=== PATIENT | female | born 1965 | race Caucasian/White ===

== ENCOUNTER 2018-08-10 16:28 | Emergency (ER) | payer MEDICAID ==
[~2018-08-10] VITALS: Ht 152.4 cm; Wt 82.1 kg
[2018-08-10 16:39] VITALS: Ht 152.4 cm; Wt 82.1 kg
[2018-08-10 17:45] VITALS: BP 121/69
== END 2018-08-10 18:49 | disposition home or self-care (01) ==
LOC: ED 16:28
DX: B34.9 Viral infection, unspecified (principal); N39.0 Urinary tract infection, site not specified; E78.00 Pure hypercholesterolemia, unspecified
CPT/HCPCS: J0696; J1100; J1885; Q0162

== ENCOUNTER 2018-08-22 16:06 | Emergency (ER) | payer MEDICAID ==
[~2018-08-22] VITALS: Ht 149.9 cm; Wt 84.8 kg
[2018-08-22 16:23] VITALS: Ht 149.9 cm; Wt 84.8 kg
[2018-08-22 21:34] VITALS: BP 121/68
== END 2018-08-22 21:36 | disposition home or self-care (01) ==
LOC: ED 16:06
DX: J40 Bronchitis, not specified as acute or chronic (principal); E78.00 Pure hypercholesterolemia, unspecified
CPT/HCPCS: J7613

== ENCOUNTER 2019-01-12 23:25 | Inpatient (IN) | payer MEDICAID ==
[~2019-01-12] VITALS: Ht 149.9 cm; Wt 80.1 kg
[2019-01-12 23:29] VITALS: Ht 149.9 cm; Wt 80.1 kg
[2019-01-12 23:57] LABS: BASOPHIL % 0.3 % (0-2); PLATELET COUNT 249 x10^3mcL (130-400); RED CELL DISTRIBUTION WIDTH 13.1 % (11.5-14.5)
[2019-01-13 00:05] LABS: CALCIUM 9.4 mg/dL (8.5-10.1); CHLORIDE SERUM 101 mmol/L (98-107); CREATININE SERUM 0.7 mg/dL (0.6-1.0); GFR1 > 60 mL/min; GLUCOSE SERUM 127 mg/dL (74-106); POTASSIUM SERUM 3.7 mmol/L (3.5-5.1); SODIUM SERUM 136 mmol/L (136-145)
[2019-01-13 00:10] LABS: ALBUMIN 3.6 g/dL (3.4-5.0); ALKALINE PHOSPHATASE 128 U/L (46-116); ALT/SGPT 33 U/L (14-59); AST/SGOT 25 U/L (15-37); BILIRUBIN TOTAL 0.38 mg/dL (0.20-1.00)
--- NOTE | 2019-01-13 01:06 | NUR ---
DR. DALLAS AT BEDSIDE FOR MSE
--- NOTE | 2019-01-13 01:08 | NUR ---
PT CAME IN FOR BILATERAL LOWER QUADRANT ABDOMINAL PAIN X 3 DAYS, REPORTS NAUSEA, DENIES VOMITING OR DIARRHEA WELL FEVERS. PT AWAKE, ALERT, RESPIRATIONS EVEN AND UNLABORED. SAFETY PRECAUTIONS IN PLACE. PROVIDED WITH URINE SPECIMEN CUP AND INSTRUCTED TO PROVIDE URINE SAMPLE, PT VERBALIZES UNDERSTANDING
--- NOTE | 2019-01-13 03:32 | NUR ---
PT TAKEN FOR CT SCAN IN NO ACUTE DISTRESS. PT AWAKE, ALERT, RESPIRATIONS EVEN AND UNLABORED.
--- NOTE | 2019-01-13 03:57 | NUR ---
DR. DALLAS AT BEDSIDE FOR MSE
--- NOTE | 2019-01-13 04:23 | NUR ---
PT REMAINS FREE FROM S/S OF DISTRESS. AWAKE, ALERT, RESPIRATIONS EVEN AND UNLABORED. MEDICATED PER EMAR. SAFETY PRECAUTIONS IN PLACE
--- NOTE | 2019-01-13 04:35 | NUR ---
REPORT CALLED TO MELCHOR HARLEY, ALL QUESTIONS AND CONCERNS WERE ADDRESSED
[2019-01-13 04:40] LABS: CHOLESTEROL 262 mg/dL (<200); CHOLESTEROL/HDL RATIO 8.2; HDL CHOLESTEROL 32 mg/dL (40-60); MAGNESIUM 1.9 mg/dL (1.8-2.4); TRIGLYCERIDES 493 mg/dL (<150)
[2019-01-13 05:30] VITALS: BP 101/69
--- NOTE | 2019-01-13 05:38 | NUR ---
PT ADMITTED TO UNIT AND BROUGHT UP BY ED NURSE. PT AMBULATORY AND TRANSFERRED SELF TO BED WITH STEADY GAIT. PT NOTED TO HAVE IV TO LAC 20G PATENT. PT DENIES MADERA OR DIZZINESS AT THIS TIME. PT IS AWAKE AND ORIENTED X4 EMIRATI SPEAKING PRIMARILY BUT ABLE TO LET NEEDS BE KNOWN. PT DENIES CP OR PRESSURE. PT HAS PALAPBLE PULSES BILAT ALL EXTREMITIES. PT HAS CLEAR LUNG SOUNDS. PT DENIES SOB. PT REPORTS HAVING ABD PAIN UPON PALPATION OT RLQ AND LUQ. PT REPORTS HAVING HAD BEEN GIVEN PAIN MEDICATIONS IN ED AND IS TOLERATING WELL. PT DENIES PAIN WHILE LYING DOWN. PT HAS FLAGYL RUNNING CONTINUING FROM ED. NO SIGNS OF DISTRESS. WILL CONTINUE TO MONITOR.
[2019-01-13 06:19] VITALS: BP 101/69
--- NOTE | 2019-01-13 07:05 | NUR ---
PT REMAINS IN BED AT THIS TIME. PT FAMILY AT BEDSIDE. PT DENIES ABD PAIN AT THIS TIME. ALL PT NEEDS MET THROUGHOUT THE EVENING. NO SIGNS OF DISTRESS. WILL ENDORSE TO DAY NURSE.
--- NOTE | 2019-01-13 07:35 | NUR ---
THE PATIENT AWAKE AND ORIENTED TO PERSON, PLACE AND TIME. PATIENT DENIES NAUSEA/VOMITING AT THIS TIME. PATIENT TOUCHES HER LOWER RIGHT QUADRANT AND SAYS ACHING/TENDOR, BUT DENIES PAIN WHEN NOT TOUCHING THE AREA. IVF NS VIA IV SITE AT [facility]. CALL LIGHT WITHIN REACH. SIDE RAILS UP X3. THE SON IS AT BEDSIDE WITH THE PATIENT.
[2019-01-13 09:59] VITALS: BP 96/62
--- NOTE | 2019-01-13 10:35 | NUR ---
THE PATIENT WAS PROVIDED [place] WIPES; URINE WAS COLLECTED AND WILL BE SENT TO LAB FOR UA. THE PATIENT TAKEN TO OR AND ACCOMPANIED BY HER SON, AUDI.
[2019-01-13 13:30] VITALS: BP 105/64
--- NOTE | 2019-01-13 13:30 | NUR ---
RECEIVING THE PATIENT BACK FROM OR S/P LAP. APPENDECTOMY; THE PATIENT DROWSY BUT AROUSABLE WITH VERBAL STIMULI. THE PATIENT STATES HAVING PAIN TO SURGICAL SITES WHEN MOVING FROM GUERNEY TO BED, THEN PATIENT BACK TO SLEEP. VS CHECKED. PATIENT POSITIONS COMFORTABLY IN BED. CALL LIGHT WITHIN REACH. SIDE RAILS UP X3. INSTRUCTED THE PATIENT TO VOID S/P SURGERY AND HAVE CLEAR LIQUID FOR DINNER. THE FAMILY IS AT BEDSIDE WITH THE PATIENT.
[2019-01-13 14:14] LABS: microscopic required? YES; urine erythrocyte NEGATIVE (NEGATIVE)
--- NOTE | 2019-01-13 14:48 | NUR ---
Discount pharmacy card and list to low cost medical clinic given to patient by Linda Mccoy.
--- NOTE | 2019-01-13 17:19 | NUR ---
THE PATIENT HAS BEEN INSTRUCTED TWICE TO VOID S/P SURGERY TO PREVENT COMPLECATION. ALSO, THE PATIENT INSTRUCTED TO ASK FOR PAIN MED BEFORE THE PAIN GOES UP OUT OF CONTROL. AUDI, SON AT BEDSIDE TRANSLATED INFORMATION TO THE PATIENT. THE PATIENT VERBALIZED UNDERSTANDING.
[2019-01-13 17:43] VITALS: BP 100/59
--- NOTE | 2019-01-13 18:27 | NUR ---
THE PATIENT TOLERATED 50% OF CLEAR LIQUID FOR DINNER WITH NO COMPLAINT OF NAUSEA/VOMITING AFTER DINNER. ALSO, PATIENT VOIDED S/P LAP. APPENDECTOMY.
--- NOTE | 2019-01-13 19:05 | NUR ---
REPORT RECIEVED FROM DAY SHIFT RN. PATIENT WAS SEEN AND IS RESTING COMFORTABLY IN BED WITH FAMILY AT BEDSIDE. BREATHING EVEN ON ROOM AIR. NO SOB OR RESP DISTRESS NOTED. C/O MILD PAIN 4/10 BUT IS TOLERABLE AT THIS TIME. NOT REQUESTING PRN PAIN MEDS. DENIES CHEST PAIN. MED SURG PATIENT. IV TO THE LAC INFUSING NS WELL. PATENT AND INTACT. NO REDNESS OR SWELLING NOTED. ABD HAS BANDAIDS X3 S/P LAP APPY. BANDAIDS CDI. PATIENT REPORTS THAT SHE HAS VOIDED BUT HAS NOT PASSED GAS OR HAD A BM. ENCOURAGED PATIENT TO AMBULATE AND EDUCATED PATIENT AND FAMILY ON THE IMPROTANCE OF AMBULATION S/P SURGERY. PATIENT AND FAMILY VERBALIZED UNDERSTANDING. ENCORAGED PATIENT TO START SLOWLY BY AMBULATE TO THE DOOR AND BACK TO BED. COMFORT AND SAFETY MEASURES MAINTAINED. BED IS LOCKED AND IN THE LOWEST POSITION. SIDE RAILS UP X2. CALL LIGHT IS WITHIN REACH. WILL CONTINUE TO MONITOR.
--- NOTE | 2019-01-13 19:49 | NUR ---
C/O 6/10 PAIN IN HER ABD S/P LAP APPY REQUESTING PAIN MEDS TO HELP WITH THE PAIN AND SO HER SON CAN HELP HER AMBULATE BEFORE HER LEAVES. PATIENT PREFERS NORCO OVER MORPHINE AT THIS TIME. PRN NORCO WAS ADMINISTERED PRESCRIBED (SEE EMAR). WILL CONTINUE TO MONITOR AND REASSESS PAIN LEVEL. CALL LIGHT IS WITHIN REACH.
[2019-01-13 21:18] VITALS: BP 107/71
--- NOTE | 2019-01-13 21:43 | NUR ---
PATIENT IS CURRENTLY AMBULATING WITH ASSISTANCE FROM FAMILY. ENCORUAGED PATIENT TO AMBULATE A FEW TIMES TO THE DOOR OR HOWEVER MANY TIMES IS TOLERABLE FOR HER. ENCOURAGED PATIENT TO AMBULATE DOWN THE HALLWAY IF SHE CAN TOLERATE IT. WILL CONTINUE TO MONITOR. CALL LIGHT IS WITHIN REACH.
--- NOTE | 2019-01-13 22:11 | NUR ---
PATIENT REPORTS THAT SHE IS DONE AMBULATING. REPORTED THAT SHE AMBULATED TO THE DOOR 10 TIMES WITH ASSISTANCE FROM HER . TOLERATED WELL. REPORTS THAT SHE IS BURPING. PATIENT MADE COMFORTABLY IN BED. SAFETY MEASURES MAINTAINED. CALL LIGHT IS WITHIN REACH. WILL CONTINUE TO MONITOR.
--- NOTE | 2019-01-13 23:30 | NUR ---
PATIENT IS RESTING IN BED ON HER PHONE. NO DISTRESS NOTED. BREATHING EVEN ON ROOM AIR. IV INFUSING WELL. PATENT AND INTACT. NO REDNESS OR SWELLING NOTED. PATIENT STATES SHE IS IN PAIN, BUT WANTS TO WAIT AN HOUR TO SEE IF IT IMPROVES BEFORE RECEIVING PAIN MEDS. WILL CONTINUE TO MONITOR. CALL LIGHT IS WITHIN REACH.
--- NOTE | 2019-01-14 00:22 | NUR ---
PATIENT STILL AWAKE IN BED. NO DISTRESS NOTED. STATES SHE HAS A LITTLE BIT OF PAIN AND DOES NOT WANT PAIN MEDS AT THIS TIME. CALL LIGHT IS WITHIN REACH. WILL CONTINUE TO MONITOR.
--- NOTE | 2019-01-14 02:17 | NUR ---
PATIENT RESTING COMFORTBALY IN BED WITH EYES CLOSED. NO DISTRESS NOTED. BREATHING EVEN. CALL LIGHT IS WITHIN REACH. IVF INFUSING WELL. NO S/S OF PAIN. WILL CONTINUE TO MONITOR.
[2019-01-14 05:04] VITALS: BP 90/55
--- NOTE | 2019-01-14 05:08 | NUR ---
PATIENT REPORTS THAT SHE HAS TO VOID. ASSISTED PATIENT TO THE BATHROOM. ENSURED PATIENT SAFETY. ASSISTED PATIENT BACK TO BED. PATIENT HAS A SLOW BY STEADY GAIT. MADE PATIENT COMFORTABLE IN BED. COMFORT AND SAFETY MEASURES MAINTAINED. CALL LIGHT IS WITHIN REACH. NO DISTRESS NOTED. WILL CONTINUE TO MONITOR.
--- NOTE | 2019-01-14 05:55 | NUR ---
PATIENT SLEPT IN LONG INTERVALS THROUGHOUT THE NIGHT. NO ACUTE/SIGNIFCANT CHANGES NOTED. BREATHING EVEN ON ROOM AIR. NO SOB OR RESP DISTRESS NOTED. STATES SHE HAS MILD ABD PAIN BUT IS TOLERABLE AND DOES NOT WANT PRN PAIN MEDS AT THIS TIME. DENIES CHEST PAIN. IVF INFUSING WELL TO LAC. PATENT AND INTACT. NO REDNESS OR SWELLING NOTED. PATIENT HAS BURPED. NO BM NOTED. ENCOURAGED PATIENT TO AMBULATE MORE IN THE MORNING. SLOW BUT STEADY GAIT NOTED. ABD BANDAIDS X3 S/P LAP APPY AND CDI. COMFORT AND SAFETY MEASURES MAINTAINED. CALL LIGHT IS WITHIN REACH. WILL ENDORSE CARE TO DAY SHIFT RN.
[2019-01-14 06:39] LABS: BASOPHIL % 0.3 % (0-2); PLATELET COUNT 230 x10^3mcL (130-400); RED CELL DISTRIBUTION WIDTH 12.6 % (11.5-14.5)
[2019-01-14 06:40] LABS: CALCIUM 9.3 mg/dL (8.5-10.1); CARBON DIOXIDE 24.4 mmol/L (21-32); CHLORIDE SERUM 110 mmol/L (98-107); CREATININE SERUM 0.8 mg/dL (0.6-1.0); GFR1 > 60 mL/min; GLUCOSE SERUM 111 mg/dL (74-106); MAGNESIUM 1.8 mg/dL (1.8-2.4); POTASSIUM SERUM 4.3 mmol/L (3.5-5.1); SODIUM SERUM 144 mmol/L (136-145)
--- NOTE | 2019-01-14 07:04 | NUR ---
RECEIVED PT FROM [employer] [facility] LAB ANALYST NURSE. PT RESTING IN BED, AOX4, RESP EVEN AND UNLABORED ON RA. REPORTED ABD PAIN AT THIS TIME AND REQUESTING FOR PAIN MEDS. WILL CARRILLO OUT MED ORDERS. IV TO LAC W/ NO SIGNS OF INFILTRATIONS, IVF INFUSING WELL. BED IN LOWEST POSITION AND CALL LIGHT WITHIN REACH. WILL CONTINUE TO MONITOR.
[2019-01-14 08:15] VITALS: BP 97/61
[2019-01-14 11:56] VITALS: BP 102/63
--- NOTE | 2019-01-14 12:53 | NUR ---
PT IN BED HAVING LUNCH, AOX4, RESP EVEN AND UNLABORED ON RA. REPORTED MILD ABD PAIN, RATED 2/10 BUT TOLERABLE TO PT. BED IN LOWEST POSITION AND CALL LIGHT WITHIN REACH. WILL CONTINUE TO MONITOR.
[2019-01-14 16:08] VITALS: BP 102/56
--- NOTE | 2019-01-14 17:59 | NUR ---
PT RESTING IN BED, AOX4, RESP EVEN AND UNLABORED ON RA. REPORTED MILD ABD PAIN, RATED 4/10, TOLERABLE TO PT AT THIS TIME. IV TO LAC W/ NO SIGNS OF INFILTRATION, IVF INFUSING WELL. BANDAIDS TO ABD OVER SURGICAL SITE CDI. BED IN LOWEST POSITION AND CALL LIGHT WITHIN REACH. WILL ENDORSE TO ONCOMING NURSE.
--- NOTE | 2019-01-14 19:36 | NUR ---
PT CURRENTLY RESTING IN BED, NO ACUTE DISTRESS. A/O X4. NO TELE, MED/SURG. DENIES CHEST PAIN. PULSES PALPABLE IN ALL EXTREMITIES, NO EDEMA NOTED. LUNG SOUNDS CTA BILATERALLY, DENIES SOB. BOWEL SOUNDS ACTIVE, LAST BM 01/12/19, PASSING GAS. VOIDING WELL. AMBULATORY. ABD INCISION X3, BANDAIDS CDI. ABD PAIN 12/03. IV PATENT AND INTACT. BED IN LOWEST POSITION, SIDE RAILS UP X2, CALL LIGHT WITHIN REACH. WILL CONTINUE TO MONITOR.
[2019-01-14 20:24] VITALS: BP 113/69
--- NOTE | 2019-01-15 01:55 | NUR ---
PT CURRENTLY RESTING IN BED, NO ACUTE DISTRESS. WILL CONTINUE TO MONITOR.
[2019-01-15 05:13] VITALS: BP 107/64
--- NOTE | 2019-01-15 06:25 | NUR ---
PT SLEPT PERIODICALLY THROUGHOUT NIGHT, NO ACUTE DISTRESS. ALL NEEDS MET AND ATTENDED TO. NO SIGNIFICANT CHANGES. IV PATENT AND INTACT. MEDICATED PAIN PER EMAR. BED IN LOWEST POSITION, SIDE RAILS UP X2, CALL LIGHT WITHIN REACH. WILL ENDORSE CARE TO ONCOMING NURSE.
--- NOTE | 2019-01-15 07:05 | NUR ---
RECEIVED PT FROM [employer] ACCESS DEVELOPER NURSE. PT SITTING AT EDGE OF BED, AOX4, RESP EVEN AND UNLABORED ON RA. DENIES ABD PAIN AT THIS TIME BUT STILL NOT ABLE TO PASS BM. ENCOURAGED TO CONTINUE W/ REGULAR DIET, INCREASE FLUID INTAKE AND TO AMBULATE TOLERATED. IV TO LAC W/ NO SIGNS OF INFILTRATION, IVF INFUSING WELL. BED IN LOWEST POSITION AND CALL LIGHT WITHIN REACH. WILL CONTINUE TO MONITOR.
[2019-01-15 07:20] LABS: CALCIUM 9.6 mg/dL (8.5-10.1); CHLORIDE SERUM 109 mmol/L (98-107); CREATININE SERUM 0.7 mg/dL (0.6-1.0); GFR1 > 60 mL/min; GLUCOSE SERUM 100 mg/dL (74-106); MAGNESIUM 1.7 mg/dL (1.8-2.4); PHOSPHOROUS 4.3 mg/dL (2.5-4.9); SODIUM SERUM 144 mmol/L (136-145)
[2019-01-15 08:01] LABS: BASOPHIL % 0.4 % (0-2); PLATELET COUNT 248 x10^3mcL (130-400)
[2019-01-15 08:16] VITALS: BP 108/71
[2019-01-15 11:54] VITALS: BP 110/64
--- NOTE | 2019-01-15 12:46 | NUR ---
PT IN BED SLEEPING, AROUSABLE, RESP EVEN AND UNLABORED ON RA. NO ACUTE DISTRESS NOTED. BED IN LOWEST POSITION AND CALL LIGHT WITHIN REACH. WILL CONTINUE TO MONITOR.
[2019-01-15 17:00] VITALS: BP 116/76
--- NOTE | 2019-01-15 18:19 | NUR ---
PT AMBULATING DOWN [place], GAIT AND BALANCE STEADY. AOX4, RESP EVEN AND UNLABORED ON RA. DENIES PAIN AT THIS TIME. IV TO LFA W/ NO SIGNS OF INFILTRATION, IVF INFUSING WELL. WILL BANDAIDS TO ABD CDI. WILL ENDORSE TO ONCOMING NURSE.
[2019-01-15] MEDS ORDERED: NORCO1 TA2 PO (19:16)
[2019-01-15] MEDS ORDERED: DULCOLAX10 M1 RC (19:18)
[2019-01-15] MEDS ORDERED: LIPI20 PO (19:18)
[2019-01-15 19:30] VITALS: BP 116/76
== END 2019-01-15 21:09 | disposition home or self-care (01) | DRG 234 ==
LOC: ED 23:25 → MU 01-13 04:03
PROVIDERS: General Practice; Surgery; ADMIT Internal Medicine
PROC: 0DTJ4ZZ Resection of Appendix, Percutaneous Endoscopic Approach (ICD-10-PCS; principal; 2019-01-13 10:30)
DX: K35.80 Unspecified acute appendicitis (principal); K65.9 Peritonitis, unspecified; E11.9 Type 2 diabetes mellitus without complications; E78.5 Hyperlipidemia, unspecified; Z68.35 Body mass index [BMI] 35.0-35.9, adult; Z79.84 Long term (current) use of oral hypoglycemic drugs
CPT/HCPCS: 82962; J0330; J0500; J1170; J1885; J2175; J2250; J2270; J2405; J2543; J2704; J2710; J3010; J3490; J7030; Q0092